=== PATIENT | male | born 1990 | race Caucasian/White ===

== ENCOUNTER 2018-09-19 17:32 | Emergency (ER) | END 2018-09-19 21:25 | disposition home or self-care (01) ==

== ENCOUNTER 2018-10-20 23:56 | Emergency (ER) | END 2018-10-21 02:45 | disposition home or self-care (01) ==

== ENCOUNTER 2018-11-23 08:28 | Emergency (ER) | payer OTHER ==
[~2018-11-23] VITALS: Ht 167.6 cm; Wt 60.0 kg
[2018-11-23 08:28] VITALS: Ht 167.6 cm; Wt 60.0 kg
[~2018-11-23 08:28] MED LIST: ACET500C5 PO; CEPH500C PO; CHOL100062 PO; CHON250C PO; FOCUS FACTOR PO; IBUP-1542 PO; METO-448 PO; MIRT30TA5 PO; MULT-902 PO; TAMS-14 PO; TYL500 PO
[2018-11-23] MEDS ORDERED: CEFEPIME 2GM/50 ML (PMX) 50 ML IVPB STA (09:02)
[2018-11-23] MEDS ORDERED: SODIUM CHLORIDE 0.9% 1L BAG IV* STA (09:02)
[2018-11-23] MEDS ORDERED: CALC300T4 PO (09:17)
[2018-11-23] MEDS ORDERED: ACETAMINOPHEN 325 MG TAB PO ONE (09:30)
[2018-11-23] MEDS ORDERED: VANCOMYCIN 1 GM (PMX) 250 ML IVPB ONE (09:30)
--- NOTE | 2018-11-23 11:23 | ERD ---
ER Documentation Chief Complaint Chief Complaint Complains of Fever with shivers Hx of Cerebral palsy HPI Patient is a 28-year-old male with a history of cerebral palsy and tachycardia who presents with vomiting. Patient was brought in by ambulance. He had nausea and vomiting which was light brown. He took metoprolol and Ativan and feels better. He woke up with the symptoms. He does not know if he had a fever. He denies diarrhea. However in the emergency department he started having diarrhea as well. He has no sick contacts. He did get a flu shot this year. His primary doctor is a [facility]. ROS All systems reviewed and are negative except as per history of present illness. Medications Home Meds Active Scripts Ibuprofen* (Motrin*) 600 Mg Tab, 600 MG PO Q6, #30 TAB Prov:GERARDO NUGENT 10/21/18 Reported Medications Calcium Carbonate* (Tums X-Str) 300 Mg Tab.chew, 1000 MG PO DAILY, TAB.CHEW 11/23/18 [Focus Factor] No Conflict Check, 1 EA PO DAILY for SUPPLEMENT 10/21/18 Cholecalciferol* (Vitamin D3*) 1,000 Unit Tablet, 1000 UNIT PO DAILY, TAB 10/21/18 Multivitamin/Iron/Folic Acid (Centrum Adults Tablet) 1 Each Tablet, 1 EACH PO, TAB 10/21/18 Acetaminophen* (Tylenol*) 500 Mg Tab, 500 MG PO Q4H PRN for MILD PAIN LEVEL 1-3, TAB 10/21/18 Chondroitin Sulfate A (Chondroitin Sulfate) 250 Mg Capsule, 250 MG PO DAILY, CAP 10/21/18 Metoprolol Tartrate* (Lopressor*) 25 Mg Tab, 25 MG PO DAILY PRN for ELEVATED BLOOD PRESSURE, #60 TAB 09/19/18 Mirtazapine* (Mirtazapine*) 30 Mg Tablet, 30 MG PO HS, TAB 09/19/18 Tamsulosin Hcl* (Flomax*) 0.4 Mg Cap.er.24h, 0.4 MG PO HS, CAP 09/19/18 Discontinued Reported Medications Cephalexin* (Cephalexin*) 500 Mg Capsule, 500 MG PO Q8, #21 CAP 10/21/18 Discontinued Scripts Acetaminophen* (Tylophen*) 500 Mg Capsule, 1 CAP PO Q6H PRN for PAIN AND OR ELEVATED TEMP, #20 CAP Prov:GERARDO NUGENT. 10/21/18 Allergies Allergies: Coded Allergies: metoclopramide (Verified Allergy, Severe, 09/19/18) PMhx/Soc Positive for cerebral palsy and tachycardia History of Surgery: No Anesthesia Reaction: No Hx Neurological Disorder: No Hx Respiratory Disorders: No Hx Cardiac Disorders: No Hx Psychiatric Problems: No Hx Miscellaneous Medical Probl: No Hx Alcohol Use: No Hx Substance Use: No Hx Tobacco Use: No Smoking Status: Never smoker FmHx Family History: diabetes Physical Exam Vitals Vital Signs Date Temp Pulse Resp B/P (MAP) Pulse Ox O2 O2 Flow FiO2 Time Delivery Rate 11/23/18 100.4 98 20 100 Room Air 11:00 11/23/18 100.2 102 20 112/68 97 Room Air 10:25 (83) 11/23/18 101.5 10:00 11/23/18 Nasal 09:11 Cannula 11/23/18 101.5 141 20 112/68 97 08:28 (83) Physical Exam Const: No acute distress Head: Atraumatic Eyes: Normal Conjunctiva ENT: Normal External Ears, Nose and Mouth. Neck: Full range of motion. No meningismus. Resp: Decreased breath sounds bilaterally Cardio: Tachycardia without murmur Abd: Soft, non tender, non distended. Normal bowel sounds Skin: No petechiae or rashes Back: No midline or flank tenderness Ext: No cyanosis, or edema Neur: Awake and has cerebral palsy with short limbs Result Diagram: 11/23/18 0935 11/23/18 0935 Results 24 hrs Laboratory Tests Test 11/23/18 09:35 11/23/18 09:59 11/23/18 10:35 White Blood Count 13.3 10^3/ul Red Blood Count 4.65 10^6/ul Hemoglobin 14.0 g/dl Hematocrit 42.6 % Mean Corpuscular Volume 91.6 fl Mean Corpuscular Hemoglobin 30.1 pg Mean Corpuscular 32.9 g/dl Hemoglobin Concent Red Cell Distribution Width 13.0 % Platelet Count 251 10^3/UL Mean Platelet Volume 9.6 fl Immature Granulocytes % 0.300 % Neutrophils % 86.0 % Lymphocytes % 7.7 % Monocytes % 5.4 % Eosinophils % 0.2 % Basophils % 0.4 % Nucleated Red Blood Cells % 0.0 /100WBC Immature Granulocytes # 0.040 10^3/ul Neutrophils # 11.5 10^3/ul Lymphocytes # 1.0 10^3/ul Monocytes # 0.7 10^3/ul Eosinophils # 0.0 10^3/ul Basophils # 0.1 10^3/ul Nucleated Red Blood Cells # 0.0 10^3/ul Prothrombin Time 13.1 Sec Prothrombin Time Ratio 1.0 INR International 0.98 Normalized Ratio Activated Partial Thromboplast 27.6 Sec Time Sodium Level 140 mmol/L Potassium Level 4.3 mmol/L Chloride Level 104 mmol/L Carbon Dioxide Level 25 mmol/L Anion Gap 11 Blood Urea Nitrogen 18 mg/dl Creatinine 0.51 mg/dl Est Glomerular Filtrat > 60 mL/min Rate mL/min Glucose Level 119 mg/dl Calcium Level 9.7 mg/dl Total Bilirubin 0.1 mg/dl Direct Bilirubin 0.00 mg/dl Indirect Bilirubin 0.1 mg/dl Aspartate Amino 42 IU/L Transf (AST/SGOT) Alanine 29 IU/L Aminotransferase (ALT/SGPT) Alkaline Phosphatase 74 IU/L Troponin I < 0.012 ng/ml Total Protein 7.9 g/dl Albumin 4.4 g/dl Globulin 3.50 g/dl Albumin/Globulin Ratio 1.25 POC Venous Lactate 2.6 mmol/L Urine Color CATARINO Urine Clarity CLOUDY Urine pH 6.0 Urine Specific Gatzke 1.018 Urine Ketones NEGATIVE mg/dL Urine Nitrite NEGATIVE mg/dL Urine Bilirubin NEGATIVE mg/dL Urine Urobilinogen 1+ mg/dL Urine Leukocyte Esterase 3+ Kyara/ul Urine Microscopic RBC 170 /HPF Urine Microscopic WBC > 182 /HPF Urine Bacteria FEW /HPF Urine Mucus MANY /HPF Urine Hemoglobin 3+ mg/dL Urine Glucose NEGATIVE mg/dL Urine Total Protein 2+ mg/dl Current Medications Medications Dose Sig/Elizabeth Start Time Status Last (Trade) Ordered Route PRN Stop Time Admin Dose Reason Admin Sodium 1,800 ml BOLUS OVER 2 11/23/18 DC 11/23/18 Chloride HOURS STAT 09:02 09:02 (NS) IV* 11/23/18 09:03 Cefepime HCl 50 ml @ ONCE STAT 11/23/18 DC 11/23/18 100 mls/hr IVPB 09:02 09:02 11/23/18 09:31 Vancomycin 250 ml @ ONCE ONCE 11/23/18 11/23/18 HCl 125 mls/hr IVPB 09:30 10:50 11/23/18 11:29 650 mg ONCE ONCE 11/23/18 DC 11/23/18 Acetaminophen PO 09:30 10:00 (Tylenol 11/23/18 09:31 Tab) Loperamide 2 mg ONCE ONCE 11/23/18 HCl PO 11:30 (Imodium) 11/23/18 11:31 Procedures/MDM Chest x-ray read by radiology shows pneumonia. EKG read by me: Rate/Rhythm: Sinus tachycardia Intervals: Normal Impression: Tachycardia without ischemia Sepsis Documentation: Patient's infectious symptoms have not stabilized and the patient is at risk of rapid decompensation. The patient will be admitted for careful hydration, antibiotic therapy, and infectious source control. SEVERE SEPSIS CRITERIA: Infectious source: Pneumonia and UTI End organ damage indicated by: Lactate greater than 2 SEPSIS MANAGEMENT Time of recognition of sepsis: 9:59 AM. Time of recognition of severe sepsis: 9:59 AM. Time of recognition of septic shock: No septic shock at this time. 3 HOUR BUNDLE Blood cultures x 2 before broad-spectrum antibiotics: Yes 30 ml/kg NS bolus completed Initial lactate 2.6 Repeat lactate pending SEPTIC SHOCK ASSESSMENT: No lactic acid > 4.0 No persistent hypotension (SBP < 90 or 40 mmHg drop, MAP < 65) despite 30 mL/kg IV fluid bolus VOLUME REASSESSMENT FOR SEPTIC SHOCK: No septic shock at this time PERSISTENT HYPOTENSION TREATMENT: Comfort care no Central line not Required Vasopressor started not required I considered further perfusion assessment with CVP measurement, SCVO2, bedside ultrasound volume assessment, passive leg raise, trial of further fluid bolus. And proceeded with 30 ml/kg fluid bolus of NSS, broad spectrum antibiotics, and admission. Patient will be transferred to [facility] as he is a [facility] member. I spoke with Dr. Ruiz who accepted the patient with a accepting number of [phone]. CRITICAL CARE Critical care time 35 minutes Emergent fluid management while maintaining close respiratory support. Provision of immediate and broad-spectrum antibiotic therapy. Simultaneous assessment for possible sources in order to direct targeted therapy. Consideration for invasive and chemical support to prevent cardiopulmonary collapse. Critical care time is independent of procedures performed. Departure Diagnosis: Primary Impression: Severe sepsis Additional Impressions: PNA (pneumonia) Pneumonia type: due to unspecified organism Laterality: unspecified laterality Lung location: unspecified part of lung Qualified Codes: J18.9 - Pneumonia, unspecified organism Fever Fever type: unspecified Qualified Codes: R50.9 - Fever, unspecified Condition: Serious PEDRO ORTEZ MD Nov 23, 2018 11:23
[2018-11-23] MEDS ORDERED: LOPERAMIDE HCL 1 MG/5 ML LIQUID (10 ML UD CUP) PO ONE (11:30)
[2018-11-23 12:32] VITALS: BP 128/78; PULSE 95; RESP 16
== END 2018-11-23 13:21 | disposition short-term general hospital (02) ==
LOC: E/R 08:28
DX: A41.9 Sepsis, unspecified organism (principal); R65.20 Severe sepsis without septic shock; J18.9 Pneumonia, unspecified organism
CPT/HCPCS: 36415; 71045; 80053; 81001; 83605; 84484; 85025; 85610; 85730; 87040; 87086; 87400; 93005; 96374; 96375; J0692; J3370; J7030; Z7502; Z7610